=== PATIENT | female | born 1940 | race Caucasian/White ===

== ENCOUNTER → 2016-12-07 | Outpatient (CLI) | payer OTHER ==
[~2016-12-07] MED LIST: ACETAMINOPHEN325 M1 PO; ACTOS; ADULT LOW DOSE81 MG PO; ASPIRIN EC81 M1 PO; BYSTOLIC10 MG PO; CIPROFLOXACIN500 M3 PO; COLCHICINE0.6 MG PO; CRESTOR20 MG PO; CRESTOR40 MG; DILAUDID 2 MG TA2 MG PO; DIOVAN320 MG; ENDOCET 7.5-321 EACH PO; FISH OIL 1,0001 EAC5 PO; FISHOIL; GLUCOPHAGE XR500 MG PO; GLUCOPHAGE1000 MG; GLUCOPHAGE500 MG PO; INDOMETHACIN 2525 MG PO; IRBESARTAN-HCT1 EAC1; LIDODERM 5%1 PATCH TOP; MS CONTIN15 MG PO; MULTIVITAMINS1 EAC7 PO; NABUMETONE 750750 M1; NEXIUM40 MG PO; NITROGLYCERIN0.4 MG SUBLING; NORCO 5-325 TA1 EACH PO; NORTRIPTYLINE H10 M2 PO; NORTRIPTYLINE H25 M3 PO; NORVASC5 MG PO; PERCOCET 7.5-31 EACH PO; PRAVACHOL40 MG PO; TENORMIN50 MG PO; TOPROL XL50 MG; TRIBENZOR 40-51 EACH PO; TRICOR; TRIGLIDE160 MG PO; VALACYCLOVIR1000 MG PO; VITAMIN B12-FO1 EAC1 PO; ZANTAC 150MG T150 MG PO; ZOFRAN4 MG
== END ==
LOC: ULTRA 12:33
DX: M79.605 Pain in left leg (principal); M79.89 Other specified soft tissue disorders

== ENCOUNTER → 2017-02-07 | Outpatient (CLI) | payer OTHER | LOC: RAD 08:31 | DX: Z12.31 Encounter for screening mammogram for malignant neoplasm of breast (principal) ==

== ENCOUNTER → 2018-12-19 | Outpatient (CLI) | payer OTHER ==
[~2018-12-19] VITALS: Ht 152.4 cm; Wt 58.1 kg
[~2018-12-19] MED LIST changes: +LIPITOR40 MG PO
--- NOTE | ~2018-12-19 | HPC ---
[facility] [place] [address] PAIN MANAGEMENT CONSULTATION Name: KLEBER RICO Room #: REG WILLARD Munoz.#: [id number] Admission: 12/19/18 ������������������ Attend Phys: Gordo Mccormick MD Discharge: ������������������ Date of : 38 Report #: [id number] THIS REPORT FOR: //name// CC: James Mccormick DATE OF SERVICE: 12/19/2018 CHIEF COMPLAINT: Followup visit for chronic low back pain with radiculopathy. It has been 3 years since I last saw the patient. She has lumbar radiculopathy and has responded well previously to lumbar epidural steroid injections. Her current episode of pain has been ongoing now for the last several months. It has worsened to the point where she scores it as a 10/10. She describes it as constant. She has been using Percocet 7.5/325 up to 5 times daily for MME of 60. This provides some measure of relief and she has been on it chronically. We had a 15-20 minute discussion about the opioids today during her visit. MEDICATIONS: Atorvastatin, ranitidine, multivitamins, nitroglycerin, irbesartan, amlodipine, oxycodone 7.5/325, aspirin. ALLERGIES: TAPE, SULFA, CELEBREX, PREGABALIN. PAST MEDICAL HISTORY: Positive for type 2 diabetes, fibromyalgia. Hysterectomy, tonsillectomy, appendectomy as surgeries. She has a cardiac stent in, but is no longer on anticoagulation therapy that was placed by Dr. Kirkpatrick in 2004. She has a history of depression and pancreatitis. SOCIAL HISTORY: She denies tobacco or alcohol. PHYSICAL EXAMINATION: Blood pressure 153/65, heart rate 63, respirations 14. She moves from sitting to standing position, ambulates with antalgic feature. She has pain across her low back. She has pain with forward flexion and extension. Straight leg raising reproduces pain that follows an L4-L5 distribution into the lower extremities. MRI shows that there is a left paracentral disk protrusion at L4-L5 extending into the neural foramen as well as L1-L2 where there is neural foraminal narrowing and L3-L4 where there is significant bilateral neural foraminal narrowing. PROCEDURE: Epidural steroid injection under fluoroscopic guidance. After informed consent, she was taken to fluoroscopic suite, placed prone, skin prepped with ChloraPrep. Skin anesthetized over the L3-L4 interspace. A [address] [address] PAIN MANAGEMENT CONSULTATION Name: KLEBER RICO [id number] Admission: 12/19/18 ������������������ Attend Phys: Gordo Mccormick MD Discharge: ������������������ Date of : 38 Report #: [id number] 20-gauge Tuohy epidural needle advanced in the epidural space in first attempt using loss of resistance technique. There was no blood or CSF aspirated. A 1 mL of Omnipaque was injected. Good spread of dye observed in the epidural space followed by 3 mL of 0.5% lidocaine mixed with 80 mg triamcinolone. She tolerated the procedure well and was observed for 45 minutes and discharged. Follow up as needed. ��������������������������������������������� ���������������������������������������� By: ��������������������������������������������� 1623 [id number] Gordo Mccormick MD /nt
[2018-12-19 08:45] VITALS: BP 153/65
--- NOTE | 2018-12-19 09:01 | NUR ---
Pain Clinic Assessment: 1. History of Osteoarthritis: NO History of Rheumatoid Arthritis: NO 2. Height: 5 ft. 0 in. 152.4 cm. Weight: 128.0 lb. oz. 58.060 kg. Patient's BMI: 25.0 3. Vital Signs: BP: 153/65 Pulse: 63 Resp: 14 Temp: 02 Sat: 100 ECG Mon: 4. Pain Intensity: 10 5. Fall Risk: Dizziness: N Needs help standing or walking: N Fallen in the last 3 months: Y Fall risk comments: 6. Patient on Blood Thinner: None 7. History of Hypertension: Y 8. Opioid Therapy greater than 6 weeks: N Opiate Contract Signed: 9. Risk Assessment Tool Provided: LOW RISK 0/3 10. Functional Assessment Tool: 11. Recreational Drug Use: Never Drug Type: Tobacco Use: Former Smoker Tobacco Type: Amount or Packs/day: How Many Years: Alcohol Use: No Frequency: Quant: Pain Clinic Assessment: 1. History of Osteoarthritis: NO History of Rheumatoid Arthritis: NO 2. Height: 5 ft. 0 in. 152.4 cm. Weight: 128.0 lb. oz. 58.060 kg. Patient's BMI: 25.0 3. Vital Signs: BP: 153/65 Pulse: 63 Resp: 14 Temp: 02 Sat: 100 ECG Mon: 4. Pain Intensity: 10 5. Fall Risk: Dizziness: N Needs help standing or walking: N Fallen in the last 3 months: Y Fall risk comments: 6. Patient on Blood Thinner: None 7. History of Hypertension: Y 8. Opioid Therapy greater than 6 weeks: N Opiate Contract Signed: 9. Risk Assessment Tool Provided: LOW RISK 0/3 10. Functional Assessment Tool: 11. Recreational Drug Use: Never Drug Type: Tobacco Use: Former Smoker Tobacco Type: Amount or Packs/day: How Many Years: Alcohol Use: No Frequency: Quant:
== END | disposition home or self-care (01) ==
LOC: PAIN 06:42
DX: M54.16 Radiculopathy, lumbar region (principal); G89.29 Other chronic pain; E11.9 Type 2 diabetes mellitus without complications; M79.7 Fibromyalgia; Z98.890 Other specified postprocedural states; Z79.899 Other long term (current) drug therapy; Z88.2 Allergy status to sulfonamides; Z88.8 Allergy status to other drugs, medicaments and biological substances; Z90.710 Acquired absence of both cervix and uterus; Z90.49 Acquired absence of other specified parts of digestive tract; Z87.19 Personal history of other diseases of the digestive system; Z86.59 Personal history of other mental and behavioral disorders; Z95.9 Presence of cardiac and vascular implant and graft, unspecified

== ENCOUNTER → 2019-01-30 | Outpatient (CLI) | payer OTHER ==
[~2019-01-30] VITALS: Ht 152.4 cm; Wt 56.3 kg
--- NOTE | ~2019-01-30 | HPC ---
[facility] [place] [address] PAIN MANAGEMENT CONSULTATION Name: KLEBER RICO Room #: REG WILLARD MunozFlor#: [id number] Admission: 01/30/19 ������������������ Attend Phys: Gordo Mccormick MD Discharge: ������������������ Date of : 38 Report #: [id number] THIS REPORT FOR: //name// CC: James Mccormick DATE OF SERVICE: 01/30/2019 Follow up visit for low back pain with radiculopathy. The patient returns to pain clinic today with hopes for an epidural steroid injection. She was last seen and treated on 12/25/2018. She responded well with about 80-90% pain relief for 2 weeks. Pain is now gradually returning. PQRS: 1. She has diffuse osteoarthritis of knees, hips, fingers. 2. BMI 24. 3. Vital signs: Blood pressure 175/93, heart rate 72. 4. Pain intensity with activity is 10/10. 5. Denies dizziness. Help with standing or walking and has not fallen in the last 3 months. 6. The patient is on no blood thinners. 7. History of hypertension. Medications reviewed and reconciled. 8. No opioid medication. 9. Denies use of tobacco and alcohol. PHYSICAL EXAMINATION: Pleasant female, moves easily from sitting to standing position, but walks with an antalgic gait. She has pain with all motion of the spine. Straight leg raising reproduces pain bilaterally L4-L5 with pain more severe on the left than the right today. The right is improved from her previous visit. MRI shows left paracentral disk protrusion at L4-L5 extending into the neural foramen. IMPRESSION: Repeat epidural injection L4-L5 under fluoroscopic guidance. PROCEDURE: She was taken to fluoroscopic suite, placed prone, skin prepped with ChloraPrep. Skin anesthetized over the L4-L5 interspace. A 20-gauge Tuohy epidural needle was advanced in the epidural space with loss of resistance technique. There was no blood or CSF aspirated. A 1 mL of Omnipaque was injected. Good spread of dye was observed in the epidural space followed by 3 mL of 0.5% lidocaine mixed with 80 mg of triamcinolone. She tolerated the procedure well and was observed for 45 minutes and discharged. [address] [address] PAIN MANAGEMENT CONSULTATION Name: KLEBER RICO Room #: REG [facility].#: [id number] Admission: 01/30/19 ������������������ Attend Phys: Gordo Mccormick MD Discharge: ������������������ Date of : 38 Report #: [id number] Followup visit planned as needed. ��������������������������������������������� ���������������������������������������� By: ��������������������������������������������� 1257 1345 Gordo Mccormick MD /nt
[2019-01-30 09:13] VITALS: BP 175/93
--- NOTE | 2019-01-30 09:24 | NUR ---
Pain Clinic Assessment: 1. History of Osteoarthritis: KNEES HIPS FINGERS PER PT History of Rheumatoid Arthritis: NO 2. Height: 5 ft. 0 in. 152.4 cm. Weight: 124.2 lb. oz. 56.337 kg. Patient's BMI: 24.3 3. Vital Signs: BP: 175/93 Pulse: 72 Resp: 16 Temp: 02 Sat: 100 ECG Mon: 4. Pain Intensity: 10 5. Fall Risk: Dizziness: N Needs help standing or walking: N Fallen in the last 3 months: N Fall risk comments: 6. Patient on Blood Thinner: None 7. History of Hypertension: Y 8. Opioid Therapy greater than 6 weeks: N Opiate Contract Signed: 9. Risk Assessment Tool Provided: LOW RISK 0/3 10. Functional Assessment Tool: 70/70 11. Recreational Drug Use: Never Drug Type: Tobacco Use: Former Smoker Tobacco Type: Amount or Packs/day: How Many Years: Alcohol Use: No Frequency: Quant:
== END | disposition home or self-care (01) ==
LOC: PAIN 06:42
DX: M51.16 Intervertebral disc disorders with radiculopathy, lumbar region (principal); G89.29 Other chronic pain; I10 Essential (primary) hypertension; M19.90 Unspecified osteoarthritis, unspecified site; Z79.899 Other long term (current) drug therapy; Z87.891 Personal history of nicotine dependence; Z98.890 Other specified postprocedural states; Z88.0 Allergy status to penicillin; Z88.2 Allergy status to sulfonamides; Z88.8 Allergy status to other drugs, medicaments and biological substances; Z79.82 Long term (current) use of aspirin

== ENCOUNTER 2019-03-29 11:30 | Emergency (ER) | payer OTHER ==
[~2019-03-29] VITALS: Ht 160 cm; Wt 65.8 kg
[2019-03-29 11:31] VITALS: BP 159/72
== END 2019-03-29 13:03 | disposition home or self-care (01) ==
LOC: ER 11:30
DX: H02.401 Unspecified ptosis of right eyelid (principal); I10 Essential (primary) hypertension; E11.9 Type 2 diabetes mellitus without complications; I25.10 Atherosclerotic heart disease of native coronary artery without angina pectoris; E78.00 Pure hypercholesterolemia, unspecified; M79.7 Fibromyalgia; F32.9 Major depressive disorder, single episode, unspecified; Z95.2 Presence of prosthetic heart valve; Z86.73 Personal history of transient ischemic attack (TIA), and cerebral infarction without residual deficits; Z90.49 Acquired absence of other specified parts of digestive tract; Z90.710 Acquired absence of both cervix and uterus; Z88.0 Allergy status to penicillin; Z88.2 Allergy status to sulfonamides; Z88.8 Allergy status to other drugs, medicaments and biological substances; Z91.048 Other nonmedicinal substance allergy status

== ENCOUNTER → 2019-04-10 | Outpatient (CLI) | payer OTHER | LOC: RAD 12:19 | DX: Z12.31 Encounter for screening mammogram for malignant neoplasm of breast (principal) ==

== ENCOUNTER → 2019-08-16 | Emergency (ER) | payer OTHER ==
[~2019-08-16] VITALS: Ht 152.4 cm; Wt 52.2 kg
[~2019-08-16] MED LIST changes: +KEFLEX500 M2 PO
--- NOTE | ~2019-08-16 | EKG ---
[facility] [place] [address] ELECTROCARDIOGRAM REPORT Name: KLEBER RICO Room #: [facility].R.#: [id number] Admission: Attend Phys: Discharge: Date of : 38 Report #: [id number] THIS REPORT FOR: cc: James Cornelius MD, Rene P. MD Epiphany, Epiphany MD ~ THIS REPORT FOR: //name// [facility] ED Test Date: 2019-08-16 Test Time: 10:21:14 Pat Name: KLEBER RICO Department: Room: Gender: F Pest Controller: TAWANNA : 1940 Requested By: Jolanta Jimenes Order Number: [id number] MD: Measurements Intervals [place] Rate: 68 P: 50 AR: 165 QRS: 5 QRSD: 76 T: 46 QT: 425 QTc: 453 Interpretive Statements Sinus rhythm Compared to ECG 01/26/2016 02:57:05 No significant changes [email or web address] By: 1021 1021 Epiphany Epiphany, /EPI
[2019-08-16 11:06] LABS: ABSOLUTE NEUTROPHILS 5.9 thou/uL (1.4-8.2); BASOPHILS 0.5 % (0.0-2.0); EOSINOPHILS 1.1 % (0.0-3.0); HEMATOCRIT 33.2 % (37.0-47.0); HEMOGLOBIN 10.7 gm/dL (12.0-15.0); LYMPHOCYTES 20.2 % (24.0-44.0); MCH 31.5 pg (26.0-34.0); MCHC 32.1 g/dL (28.0-37.0); MCV 98.1 fL (80.0-100.0); MONOCYTES 6.4 % (1.0-8.0); PLATELET COUNT 308 thou/uL (150-400); POLYS 71.8 % (36.0-66.0); RBC 3.38 mil/uL (4.20-5.00); RDW 13.7 % (10.5-14.5); WBC 8.2 thou/uL (4.0-11.0)
[2019-08-16 12:18] LABS: ANION GAP 11 mmol/L (7-16); BUN 26 mg/dL (7-18); CALCIUM 9.6 mg/dL (8.5-10.1); CHLORIDE 104 mmol/L (98-107); CO2 22 mmol/L (21-32); CREATININE 1.5 mg/dL (0.6-1.0); GLUCOSE 115 mg/dL (74-106); POTASSIUM 5.3 mmol/L (3.5-5.1); SODIUM 137 mmol/L (136-145)
[2019-08-16 12:28] LABS: ALBUMIN 3.9 g/dL (3.4-5.0); DIRECT BILIRUBIN < 0.1 mg/dL (<0.1-0.2); LIPASE 161 U/L (73-393); SGOT 21 U/L (15-37); SGPT 26 U/L (30-65); TOTAL BILIRUBIN 0.5 mg/dL (<0.1-1.0); TROPONIN-I <0.06 ng/mL (<0.06)
[2019-08-16 13:06] LABS: URINE BILIRUBIN NEGATIVE (Negative); URINE BLOOD NEGATIVE (Negative); URINE CLARITY CLEAR; URINE COLOR YELLOW; URINE GLUCOSE-RANDOM* NEGATIVE (Negative); URINE KETONES NEGATIVE (Negative); URINE NITRITE-REFLEX NEGATIVE (Negative); URINE PROTEIN (DIPSTICK) 1+ (Negative); URINE SPECIFIC GRAVITY 1.025 (1.005-1.035); URINE UROBILINOGEN 0.2 E.U./dl (0.2-1.0)
[2019-08-16 13:39] LABS: URINE LEUKOCYTES-REFLEX 1+ (Negative)
[2019-08-16 13:54] LABS: CASTS None Seen /LPF (None Seen); CRYSTALS None Seen /LPF (None Seen); SQUAMOUS >10 Many /LPF (0-3); URINE RBC None Seen /HPF (0-2)
[2019-08-16 15:05] VITALS: BP 165/87
== END ==
LOC: ER 09:58
PROVIDERS: Emergency Medicine
DX: J06.9 Acute upper respiratory infection, unspecified (principal); N39.0 Urinary tract infection, site not specified; I10 Essential (primary) hypertension; I25.10 Atherosclerotic heart disease of native coronary artery without angina pectoris; E11.9 Type 2 diabetes mellitus without complications; E78.00 Pure hypercholesterolemia, unspecified; F32.9 Major depressive disorder, single episode, unspecified; Z90.49 Acquired absence of other specified parts of digestive tract; Z90.710 Acquired absence of both cervix and uterus; Z95.5 Presence of coronary angioplasty implant and graft; Z91.048 Other nonmedicinal substance allergy status; Z88.0 Allergy status to penicillin; Z88.2 Allergy status to sulfonamides; Z88.8 Allergy status to other drugs, medicaments and biological substances

== ENCOUNTER 2019-09-22 21:25 | Inpatient (IN) | payer OTHER ==
[~2019-09-22] VITALS: Ht 152.4 cm; Wt 54.5 kg
[~2019-09-22 21:25] MED LIST changes: -IRBESARTAN-HCT1 EAC1; +IRBESARTAN-HCT1 EAC1 PO
[2019-09-22 21:30] VITALS: BP 173/79
[2019-09-22 21:42] LABS: ABSOLUTE NEUTROPHILS 4.9 thou/uL (1.4-8.2); BASOPHILS 0.8 % (0.0-2.0); EOSINOPHILS 2.6 % (0.0-3.0); HEMATOCRIT 32.8 % (37.0-47.0); HEMOGLOBIN 10.6 gm/dL (12.0-15.0); LYMPHOCYTES 35.6 % (24.0-44.0); MCH 31.8 pg (26.0-34.0); MCHC 32.3 g/dL (28.0-37.0); MCV 98.4 fL (80.0-100.0); MONOCYTES 7.8 % (1.0-8.0); PLATELET COUNT 324 thou/uL (150-400); POLYS 53.2 % (36.0-66.0); RBC 3.33 mil/uL (4.20-5.00); WBC 9.2 thou/uL (4.0-11.0)
[2019-09-22 21:52] LABS: ANION GAP 11 mmol/L (7-16); BUN 21 mg/dL (7-18); CALCIUM 8.2 mg/dL (8.5-10.1); CHLORIDE 106 mmol/L (98-107); CO2 24 mmol/L (21-32); CREATININE 1.7 mg/dL (0.6-1.0); GLUCOSE 172 mg/dL (74-106); POTASSIUM 5.2 mmol/L (3.5-5.1); SODIUM 141 mmol/L (136-145)
[2019-09-22 22:01] LABS: TROPONIN-I <0.06 ng/mL (<0.06)
[2019-09-22] MEDS ORDERED: METFORMIN HCL500 M3 PO (22:04)
[2019-09-22] MEDS ORDERED: HYDROCHLOROTH12.5 M2 PO (22:06)
[2019-09-23] VITALS (12 sets, daily range): BP systolic 142–178; BP diastolic 46–86
[2019-09-23] MEDS ORDERED: LIPITOR40 MG PO (00:51)
--- NOTE | 2019-09-23 01:51 | NUR ---
PT NEW ADMIT. ARRIVE ON UNIT AT 0045. ALERT AND ORIENTED. RATES CHEST PAIN AT 2/10. STATES "IT IS JUST DISCOMFORT". ELEVATED BP, SBP IN 170, DATA COMMUNICATIONS SOFTWARE CONSULTANT NOTIFIED. ADMISSION ASSESSMENT COMPLETE AND CONSENT FORMS SIGNED. PT EDUCATED ON NEW VISITING POLICY AND IS AGREABLE. DENIES ANY SOB, OR NAUSEA. ORDERS ACKNOLEDGED. FLUIDS STARTED. PT ADMITTED IN A STABLE CONDITION. BG ON ADMISSION 103. ABLE TO AMBULATE TO BATHROOM AND CALLS APPROPRIATE. ROOM ORIENTATION GIVEN. NO FURTHER CONCERN AT THIS TIME. WILL CONTINUE TO MONITOR.
[2019-09-23 06:04] LABS: ANION GAP 10 mmol/L (7-16); BUN 20 mg/dL (7-18); CALCIUM 8.1 mg/dL (8.5-10.1); CHLORIDE 108 mmol/L (98-107); CHOLESTEROL 135 mg/dL (<200); CO2 23 mmol/L (21-32); CREATININE 1.4 mg/dL (0.6-1.0); GLUCOSE 108 mg/dL (74-106); HDL CHOLESTEROL 50 mg/dL (>40); LDL CHOLESTEROL 55 mg/dL (<100); POTASSIUM 5.2 mmol/L (3.5-5.1); SODIUM 141 mmol/L (136-145); TC:HDL 2.7 Ratio (Not establshd); TRIGLYCERIDE 154 mg/dL (<150); VLDL 31 mg/dL (<40)
[2019-09-23 06:18] LABS: SERUM ASSESSMENT Clear
--- NOTE | 2019-09-23 08:53 | EKG ---
[facility] [place] [address] ELECTROCARDIOGRAM REPORT Name: KLEBER RICO Room #: 205-P ADM IN M.R.#: [id number] Admission: 09/22/19 Attend Phys: Michele Mancia Discharge: Date of : 38 Report #: [id number] THIS REPORT FOR: cc: James Cornelius MD, Rene P. MD Lundgren,Etienne Bustamante MD [facility] ~ THIS REPORT FOR: //name// [facility] ED Test Date: 2019-09-22 Test Time: 21:26:32 Pat Name: KLEBER RICO Department: Room: [facility] Gender: F Intermediate Project Manager: WANDA : 1940 Requested By: Jorge Jauregui Order Number: [id number] MD: Etienne Craig Measurements Intervals [place] Rate: 78 P: 69 RI: 151 QRS: 32 QRSD: 75 T: 63 QT: 367 QTc: 419 Interpretive Statements Sinus rhythm Repolarization abnormality Compared to ECG 08/16/2019 10:21:14 No significant change was found Electronically Signed On 09-23-2019 8:52:49 CDT by Etienne Craig [email or web address] <ELECTRONICALLY SIGNED> By: Etienne Craig MD, [facility] 09/23/19 0852 25 25 Etienne Craig MD, [facility] /EPI
--- NOTE | 2019-09-23 08:59 | EKG ---
[facility] [place] [address] ELECTROCARDIOGRAM REPORT Name: KLEBER RICO Room #: 205-P ADM IN M.R.#: [id number] Admission: 09/22/19 Attend Phys: Michele Reynaga Tasia Discharge: Date of : 38 Report #: [id number] THIS REPORT FOR: cc: James Cornelius MD, Rene P. MD Lundgren,Etienne Bustamante MD [facility] ~ THIS REPORT FOR: //name// [facility] Test Date: 2019-09-23 Test Time: 08:41:43 Pat Name: KLEBER RICO Department: Room: [facility] Gender: F Professor Of Journalism: Ginna SCHREIBER : 1940 Requested By: Shannon Moya Order Number: [id number] MD: Etienne Craig Measurements Intervals [place] Rate: 67 P: 62 [place]: 149 QRS: -18 QRSD: 87 T: 53 QT: 421 QTc: 445 Interpretive Statements Sinus rhythm Normal tracing Compared to ECG 08/16/2019 10:21:14 No significant changes found Electronically Signed On 09-23-2019 8:58:37 CDT by Etienne Craig [email or web address] <ELECTRONICALLY SIGNED> By: Etienne Craig MD, [facility] 09/23/19 0858 Etienne Craig MD, [facility] /EPI
--- NOTE | 2019-09-23 09:57 | NUR ---
Pt with high nutrition screening identified for unintentional wt loss and poor intake prior admit. Admit with chest pain. Currently npo, and off unit for further workup. Possible 14-23 lb loss. Hx DM, CAD/stents, htn. Will followup again tomorrow 09/23 to speak with pt and implement any necessary nutrition interventions.
--- NOTE | 2019-09-23 11:39 | 2DMMODE ---
[facility] [address] [place] [address] 2 D/M-MODE ECHOCARDIOGRAM Name: KLEBER RICO Room #: 205-P ADM IN M.R.#: [id number] Admission: 09/22/19 Attend Phys: Michele Mancia Discharge: Date of : 38 Report #: [id number] THIS REPORT FOR: cc: James Cornelius MD, Rene P. MD Lammoglia, Francisco J. MD ~ APPROVED REPORT Study performed: 09/23/2019 10:46:37 EXAM: Comprehensive 2D, Doppler, and color-flow Echocardiogram Patient Location: Echo lab Status: routine BSA: 1.48 HR: 75 bpm BP: 188/91 mmHg Rhythm: NSR Other Information Study Quality: Adequate Risk Factors: Cardiac Risk Factors: HTN, Hyperlipidemia, DM Indications CAD Chest Pain Hx S/P stent LAD 2D Dimensions IVSd: 10.01 (7-11mm) LVOT Diam: 18.00 (18-24mm) LVDd: 33.36 mm PWd: 9.40 (7-11mm) Ascending Ao: 35.58 (22-36mm) LVDs: 22.75 (25-40mm) Aortic Root: 28.01 mm LV Single Plane 4CH: 60.04 % LV Single Plane 2CH: 65.64 % Biplane EF: 64.5 % Volumes Left Atrial Volume (Systole) Single Plane 4CH: 36.40 mL Single Plane 2CH: 29.11 mL LA ESV Index: 26.00 mL/m2 [facility] [place] [address] 2 D/M-MODE ECHOCARDIOGRAM Name: KLEBER RICO VISH Room #: 205-P [facility] IN M.R.#: [id number] Admission: 09/22/19 Attend Phys: Michele Reynaga Sep Discharge: Date of : 39 Report #: [id number] Aortic Valve AoV Peak Jose A.: 2.19 m/s AO Peak Gr.: 19.24 mmHg LVOT Max P.62 mmHg AO Mean Gr.: 11.31 mmHg LVOT Mean P.84 mmHg AO V2 Mean: 1.63 m/s LVOT Max V: 1.29 m/s AO V2 VTI: 43.61 cm LVOT Mean V: 1.07 m/s MARCELO (VTI): 1.58 cm2 LVOT V1 VTI: 27.60 cm MARCELO Vmax: 1.47 cm2 SV (LVOT): 69.12 mL Mitral Valve E/A Ratio: 0.5 MV Decel. Time: 242.58 ms MV E Max Jose A.: 0.67 m/s MV A Jose A.: 1.23 m/s MV PHT: 70.35 ms IVRT: 55.36 ms TDI E/Lateral E': 9.57 E/Medial E': 13.40 Medial E' Jose A.: 0.05 m/s Lateral E' Jose A.: 0.07 m/s Pulmonary Valve PV Peak Jose A.: 1.08 m/s PV Peak Gr.: 4.67 mmHg Pulmonary Vein P Vein S: 0.77 m/s P Vein A: 0.36 m/s P Vein D: 0.33 m/s P Vein A Dur.: 96.9 msec P Vein S/D Ratio: 2.33 Tricuspid Valve TR Peak Jose A.: 3.08 m/s RAP Estimate: 7.00 mmHg TR Peak Gr.: 37.89 mmHg PA Pressure: 45.00 mmHg Left Ventricle The left ventricle is normal size. There is normal LV segmental wall motion. There is normal left ventricular wall thickness. Left ventricular systolic function is normal. The left ventricular ejection fraction is within the normal range. LVEF is 60-65%. Mild diastolic dysfunction is present (impaired relaxation pattern). Right Ventricle [facility] [address] [place] [address] 2 D/M-MODE ECHOCARDIOGRAM Name: KLEBER RICO [facility] Room #: 205-P [facility] IN M.R.#: [id number] Admission: 09/22/19 Attend Phys: Michele Jacobs Discharge: Date of : 38 Report #: [id number] The right ventricle is normal size. The right ventricular systolic function is normal. Atria The left atrium size is normal. The right atrium size is normal. Aortic Valve Aortic valve is calcified. Trace aortic regurgitation. The aortic valve maximum pressure gradient is 19 mmHg and the mean is 11 mmHg. The calculated aortic valve area is 1.6 cm2. Mild aortic stenosis. Mitral Valve The mitral valve is normal in structure. Trace mitral regurgitation. No evidence of mitral valve stenosis. Tricuspid Valve The tricuspid valve is normal in structure. Mild tricuspid regurgitation. Pulmonary artery pressure is 45 mmHg. Pulmonic Valve The pulmonary valve is normal in structure. There is no pulmonic valvular regurgitation. Great Vessels The aortic root is normal in size. The ascending aorta is normal in size. IVC is normal in size and collapses >50% with inspiration. Pericardium There is no pericardial effusion. <Conclusion> The left ventricle is normal size. LVEF is 60-65%. Aortic valve is calcified. Trace aortic regurgitation. The aortic valve maximum pressure gradient is 19 mmHg and the mean is 11 mmHg. The calculated aortic valve area is 1.6 cm2. Mild aortic stenosis. The mitral valve is normal in structure. Trace mitral regurgitation. The tricuspid valve is normal in structure. Mild tricuspid regurgitation. Pulmonary artery pressure is [address] [address] 2 D/M-MODE ECHOCARDIOGRAM Name: KLEBER RICO VSIH Room #: 205-P [facility] IN M.R.#: [id number] Admission: 09/22/19 Attend Phys: Michele Jacobs Discharge: Date of : 38 Report #: [id number] The pulmonary valve is normal in structure. There is no pericardial effusion. <ELECTRONICALLY SIGNED> By: Karlo Farrell MD 09/23/19 1137 113 113 Karlo Farrell MD /INF
--- NOTE | 2019-09-23 17:48 | NUR ---
PT CARE ASSUMED APPROXIMAELY 0700. PT ASSESSMENTS CHARTED. PT MEDICATIONS CHARTED. PT DENIES CHEST PAIN. VSS. PT NUCLEAR STRESS TEST WAS NORMAL.
--- NOTE | 2019-09-23 18:39 | NUR ---
PT IS DISCHARGE TO HOME. PT TELE IS D/C'D. PT IV IS D/C'D. PT DENIES CHEST PAIN. VSS.
[2019-09-24 00:07] LABS: GLYCOHEMOGLOBIN (HGB A1C) 6.2 % (4.8-5.6)
== END 2019-09-23 18:45 | disposition home or self-care (01) | DRG 313 ==
LOC: ER 21:25 → EROBS 23:41 → 2N 23:41
PROVIDERS: Emergency Medicine; Nurse Practitioner Family; ADMIT Hospitalist
DX: R07.89 Other chest pain (principal); N17.9 Acute kidney failure, unspecified; Z90.49 Acquired absence of other specified parts of digestive tract; Z90.710 Acquired absence of both cervix and uterus; M79.7 Fibromyalgia; I25.10 Atherosclerotic heart disease of native coronary artery without angina pectoris; E78.5 Hyperlipidemia, unspecified; K21.9 Gastro-esophageal reflux disease without esophagitis; G47.33 Obstructive sleep apnea (adult) (pediatric); E11.40 Type 2 diabetes mellitus with diabetic neuropathy, unspecified; Z60.2 Problems related to living alone; I65.23 Occlusion and stenosis of bilateral carotid arteries; I71.4 Abdominal aortic aneurysm, without rupture; N18.9 Chronic kidney disease, unspecified; I12.9 Hypertensive chronic kidney disease with stage 1 through stage 4 chronic kidney disease, or unspecified chronic kidney disease; E11.22 Type 2 diabetes mellitus with diabetic chronic kidney disease; D64.9 Anemia, unspecified; E78.00 Pure hypercholesterolemia, unspecified; F32.9 Major depressive disorder, single episode, unspecified; Z95.5 Presence of coronary angioplasty implant and graft; Z79.899 Other long term (current) drug therapy; Z79.84 Long term (current) use of oral hypoglycemic drugs; Z79.82 Long term (current) use of aspirin; Z88.0 Allergy status to penicillin; Z88.2 Allergy status to sulfonamides; Z88.8 Allergy status to other drugs, medicaments and biological substances; Z91.048 Other nonmedicinal substance allergy status; Z87.891 Personal history of nicotine dependence; Z82.49 Family history of ischemic heart disease and other diseases of the circulatory system
CPT/HCPCS: 10081

== ENCOUNTER → 2019-12-03 | Outpatient (CLI) | payer OTHER ==
[~2019-12-03] MED LIST changes: +HYDROCHLOROTH12.5 M2 PO; +METFORMIN HCL500 M3 PO
== END ==
LOC: SJCVCIMAG 09:08
DX: I65.23 Occlusion and stenosis of bilateral carotid arteries (principal); I71.4 Abdominal aortic aneurysm, without rupture; I25.10 Atherosclerotic heart disease of native coronary artery without angina pectoris; E11.9 Type 2 diabetes mellitus without complications; E78.00 Pure hypercholesterolemia, unspecified; I35.0 Nonrheumatic aortic (valve) stenosis; Z79.899 Other long term (current) drug therapy; Z87.891 Personal history of nicotine dependence

== ENCOUNTER → 2020-04-12 | Outpatient (CLI) | payer OTHER | LOC: RAD 09:32 → BC 13:11 | PROVIDERS: ATTEND Family Medicine | DX: Z12.31 Encounter for screening mammogram for malignant neoplasm of breast (principal) ==

== ENCOUNTER → 2020-10-04 | Outpatient (CLI) | payer OTHER | LOC: SJCVC 14:58 | PROVIDERS: ATTEND Internal Medicine Cardiovascular Disease | DX: I44.0 Atrioventricular block, first degree (principal); R07.2 Precordial pain; I35.0 Nonrheumatic aortic (valve) stenosis; I95.1 Orthostatic hypotension; I10 Essential (primary) hypertension; R06.02 Shortness of breath; E78.5 Hyperlipidemia, unspecified; I65.23 Occlusion and stenosis of bilateral carotid arteries; E11.9 Type 2 diabetes mellitus without complications; E78.00 Pure hypercholesterolemia, unspecified; Z79.899 Other long term (current) drug therapy ==

== ENCOUNTER → 2021-04-13 | Outpatient (CLI) | payer OTHER | LOC: BC 11:16 | PROVIDERS: ATTEND Family Medicine | DX: Z12.31 Encounter for screening mammogram for malignant neoplasm of breast (principal) ==